=== PATIENT | female | born 1945 | race Caucasian/White ===

== ENCOUNTER 2018-01-13 09:44 | Observation (INO) ==
[2018-01-13] MEDS ORDERED: Heparin 1,000 UNITS/500 mL 500 ML ONE (09:54)
[2018-01-13] MEDS ORDERED: 0.9 % Sodium Chloride 500 ML ONE ×2 (09:54→10:28)
[2018-01-13] MEDS ORDERED: Ampicillin/Sulbactam 1,500 MG in 0.9 % Sodium Chloride Mini Bag 100 ML IVPB ONE (10:03)
[2018-01-13] MEDS ORDERED: *HR* Midazolam HCl 2 MG/2 ML VIAL IVP ONE (10:03)
[2018-01-13] MEDS ORDERED: *HR* FentaNYL (PF) 100 MCG/2 ML VIAL IVP ONE (10:03)
--- NOTE | 2018-01-13 10:05 | Pre-Sedation Evaluation ---
Pre-sedation evaluation - Pre-sedation checklist Date of procedure: 01/13/18 Procedure: double H&P (including ROS) documented in medical record: No Previous reaction to sedatives/anesthetics: No Dietary Status: NPO after Midnight Airway Assessment: Patient can open mouth completely, TMJ function normal, Micrognathia (under-bite, receding chin) absent, Neck with adequate range of motion Possible difficult airway: No ASA Classification *see protocol: CLASS II-Mild systemic disease Plan of Care: Pt appropriate candidate for procedure/moderate/conscious sedation , Risks/benefits of procedure/sedation discussed w/ patient/family, If not NPO; Risk of intake outweiged by necessity to perform procedure Cardiac Registry (Cardio Only) - Functional Capacity - Clincal Frailty Scale Clinical Frailty Scale: Managing Well
--- NOTE | 2018-01-13 10:05 | History & Physical Report ---
Date of Encounter: 01/13/18 Time of Encounter: 10:00 24 Hour HP Update - Instructions Instructions: If the History and Physical is less than 30 days old and was completed prior to A.M. admission and or procedure and has NOT been updated on calendar day of procedure please complete this update prior to performing procedure. - Update Patient reports changes in Medical Condition: No Changes in examination, assessment, or condition: No Changes in Medication: No Preop tests/diagnostics Reviewed: Yes Pre-Op MRSA Screen: Negative Surgery Remains Indicated: Yes Consent for Planned Operative Procedure(s) Verified: Yes - Pre-Operative Checklist Preoperative Checklist Indicated: Yes Prophylactic Antibiotic Ordered: Yes Is VTE Prophylaxis Indicated?: NO
[2018-01-13] MEDS ORDERED: Iopamidol 100 ML in 0.9 % Sodium Chloride 50 ML IVP ONE (11:12)
[2018-01-13] MEDS ORDERED: Isovue-300 50 ML VIAL IVP ONE ×2 (11:15→11:16)
[2018-01-13] MEDS ORDERED: Ondansetron 4 MG/2 ML VIAL ONE (11:35)
[2018-01-13] MEDS ORDERED: Ondansetron 4 MG/2 ML VIAL IVP PRN (11:38)
--- NOTE | 2018-01-13 11:49 | IR Procedure Note ---
Date of procedure: 01/13/18 Consent Obtained: Written consent Timeout: Correct patient and procedure verified, Correct site verified, Time out performed, Skin prep completed Indications: liver hepatoma Procedure Performed: hepatic angiogram, bland embolization Was there an administrative sales assistant present: No Site/Technique: rt femoral access Results/Findings: embolized branch to segment 8 Estimated blood loss (cc): 4 Complications: None; Tolerated procedure well Specimen: none
[2018-01-13] MEDS ORDERED: *HR* Dextrose 50 % in Water (Syg) 50 ML SYRINGE IVP PRN (13:12)
[2018-01-13] MEDS ORDERED: D5% in Water 1,000 ML IVC PRN (13:12)
[2018-01-13] MEDS ORDERED: Dextrose Gel 15 GM/37.5 ML TUBE PO PRN ×2 (13:12)
[2018-01-13] MEDS ORDERED: Naloxone 0.4 MG/ML INJ IVP PRN (13:14)
--- NOTE | 2018-01-13 13:30 | Internal Med History&Physical ---
<GageJustin Caraballo - Last Filed: 01/13/18 14:11> Date of Encounter: 01/13/18 Time of Encounter: 12:30 Internal Medicine - H&P: HPI Chief complaint: N/V Post-Surgery Admitted From: Direct Admit Plans for Post Hospital Care: Home History of present illness: Ms. Laureano is a 73 year old female w/PMH of HLD, HTN, diabetes controlled with oral medications, asthma, arthritis, thyroid disease, migraines, liver disease, history of thrombocytopenia, and depression presents post-surgical intervention (hepatic angiogram and brand embolization) for liver hepatoma. Pt. was experiencing nausea and vomiting post-procedure, most likely d/t sedation. Pt. reports hx of intermittent diarrhea and N/V and SOB following procedure but denies recent illness, fever, chills, changes in vision, headache, unusual bleeding, chest pain, SOB now, abdominal pain, constipation, dizziness, lightheadedness, numbness, tingling, pre-syncope, or syncope. Past Med Surg Social Fam HX - Past Medical History Source: patient, old records reviewed, obtained from family Medical history: arthritis, asthma, cirrhosis, diabetes, hyperlipidemia, hypertension, migraine, thyroid disease Additional medical history: umbilical hernia. asymptomatic cholelithiasis. asthma. type 2 dm Psychiatric history: anxiety, depression - Past Surgical History Surgical History: cataract, cholecystectomy, hysterectomy, orthopedic, other Additional surgical history: flex sig - - Social History Smoking Status: Former smoker Packs per day: 3-4 PPD - Reports quitting in 1997 Smokeless Tobacco Status: No Alcohol use: none (Reports quitting in 1997) Drug use: none Current living situation: Home Activity Level: Independent ambulation Recent Out of Country Travel Within the Last 8 Weeks: No Exposure or Possible Exposure to Illness During Travel: No - Family History Mother Race: Family Member Ethnicity: Non- Living Status: Age at : 69 Cause of : COPD/Emphysema Hx Family Cardiac Disorders: Yes (SC, CAD) Hx Family Respiratory Disorders: Yes (COPD/Empysema) Hx Family Endocrine Disorder: Yes (DM, Thyroid disease) Hx Family Neurologic Disorders: Yes (CVA) Father Race: Family Member Ethnicity: Non- Living Status: Age at : 57 Cause of : SC Hx Family Cardiac Disorders: Yes (massive SC) Sister Race: Family Member Ethnicity: Non- Living Status: Still Living Hx Family Endocrine Disorder: Yes (Pre-diabetes) Internal Medicine - H&P: Meds Albuterol Sulfate [Albuterol Inhaler] 2 puff IH Q4HR PRN 03/02/16 [History] Ergocalciferol (VITAMIN D2) [Vitamin D2] 2,000 unit PO TID 03/02/16 [History] Levothyroxine [Synthroid] 75 mcg PO QAM 03/02/16 [History] Loratadine [Claritin] 10 mg PO DAILY PRN 03/02/16 [History] Metformin HCl [Metformin HCl ER] 1,000 mg PO BID 03/02/16 [History] Sertraline [Zoloft] 100 mg PO DAILY 03/02/16 [History] Simvastatin [Zocor] 20 mg PO HS 03/02/16 [History] Topiramate [Topamax] 50 mg PO DAILY PRN 03/02/16 [History] Zolpidem [Ambien] 10 mg PO HS PRN 08/27/16 [History] Docusate [Colace] 100 mg PO 3XW 11/20/16 [History] Ferrous Sulfate 325 mg PO BIDWM #60 tablet 11/20/16 [Rx] Mv,Ca,Iron,Mn/FA/Chol/Dada/PABA [Body, Hair, Skin & Nails Cap] 1 each PO DAILY [History] Vitamin B Complex/Minerals [Sm Stress Formula+Zinc Tablet] 1 each PO DAILY 11/10 [History] Metoprolol Succinate [Toprol Xl] 25 mg PO BID 01/13/18 [History] Omeprazole [PriLOSEC] 20 mg PO DAILY 01/13/18 [History] 3 Allergy/AdvReac Type Severity Reaction Status Date / Time Sulfa (Sulfonamide Allergy Unknown Hives Verified 12/22/17 10:03 Antibiotics) All Systems PM: A 10-system review of systems was performed and is negative for pertinent findings except as documented above in the HPI. - Constitutional Constitutional: as per HPI, no chills, no fever(s), no night sweats - EENT Eyes: no change in vision, no discharge, no pain, no photophobia Ears: no ear discharge, no ear pain, no tinnitus Nose, mouth and throat: no dysphagia, no nasal discharge, no neck pain, no sore throat - Breasts Breasts: as per HPI - Cardiovascular Cardiovascular ROS IM: no chest pain, no diaphoresis, no dyspnea, no lightheadedness, no palpitations, no syncope - Respiratory Respiratory: no cough, no dyspnea, no wheezing, no excessive phlegm production - Gastrointestinal Gastrointestinal: as per HPI, diarrhea, no abdominal pain, no hematemesis, no hematochezia, no melena, no nausea, no vomiting - Genitourinary Genitourinary: no change in urinary stream, no dysuria, no flank pain, no hematuria Menstruation: as per HPI, post hysterectomy - Musculoskeletal Musculoskeletal ROS IM: no numbness, no tingling - Integumentary Integumentary IM: no rash, no unusual bruising - Neurological Neurological ROS: no confusion, no convulsions, no focal weakness, no numbness, no tingling, no tremor(s) - Psychiatric Psychiatric: as per HPI - Endocrine Endocrine IM: as per HPI - Hematologic/Lymphatic Hematologic/Lymphatic: no easy bruising - Allergic/Immunologic Allergic/Immunologic: as per HPI - Constitutional Vitals: Temp Pulse Resp BP Pulse Ox 97.8 F 62 16 135/67 94 01/13/18 09:52 01/13/18 13:00 01/13/18 13:00 01/13/18 13:00 01/13/18 13:00 General appearance: Present: cooperative, A&O X 3, pleasant, no acute distress, obese, answers questions appropriately Exam: Patient examined at bedside post-procedure. Pt. reports weakness but states she is no longer nauseous even after eating some bites of keanu crackers. Pt. denies other complaints at this time. Instructed that she is falls precautions and up with assist d/t weakness and post-surgical status. Daughter present during assessment and plan of care discussed w/pt. and daughter who expressed understanding and agreement to POC. VS: 97.8F temp, HR 64, RR 16, BP 154/87, SpO2 92% on RA. - Head Head exam: Present: atraumatic, normocephalic - Eye Eye exam: Present: PERRL, conjuntiva pink, sclera anicteric Pupils: Present: PERRL - ENT ENT exam: Present: normal exam - Neck Neck exam general surgery: Present: normal inspection - Respiratory Respiratory exam: Present: CTAB. Absent: accessory muscle use, rales, rhonchi, wheezes - Cardiovascular Cardiovascular exam: Present: RRR, +S1, +S2. Absent: diastolic murmur, gallop, rubs, systolic murmur - GI/Abdominal GI/Abdominal exam: Present: normal bowel sounds, soft, no peritoneal signs. Absent: distended, tenderness - Rectal Rectal exam: Present: deferred - Additional comments: exam deferred. - Extremities Exam Extremities exam: Present: warm, radial pulses palpable and symmetrical. Absent : calf tenderness, cyanotic, pedal edema - Neurological Exam Neurological exam: Present: alert, CN II-XII intact, oriented X3, no focal deficits. Absent: pronater drift, facial droop, speech deficit - Psychiatric Psychiatric exam: Present: normal affect, normal mood - Skin Skin exam: Present: dry, intact Internal Med - H&P Results - Labs CBC & Chem 7: 01/13/18 13:17 - EKG Data EKG shows normal: sinus rhythm - EKG Data Prior EKG available for review: yes EKG comments: 01/13/18 13:44 EKG dated 01/13/18 11:19 shows sinus rhythm with occasional ectopic premature complexes and prolonged QT interval. EKG dated 01/13/18 11:20 shows sinus rhythm with occasional ventricular premature complexes. - Assessment and plan (1) Nausea and vomiting Current Visit: Yes Status: Acute Assessment and plan: Acute N/V post-hepatic angiogram and bland embolization, most likely d/t sedation. Zofran ordered by IR x1 dose. 12.5 mg IVP Phenergan Q6HR PRN for N/V. Pt. reports eating a few bites of keanu cracker post-procedure w/o N/V. Clear liquid diet ordered with Advance as Tolerated order. IR to see pt. in a.m. Monitor I&O. Pt. discussed w/Dr. Kelley who agrees w/plan of care. Pt. is moderate risk for further morbidity and complications from post-procedure bleeding, N/V d /t sedation, HTN complicating post-procedure status and bleeding risk, hx, and risk factors. Observation. Qualifiers: Vomiting type: cyclical vomiting Vomiting Intractability: non-intractable Qualified Code(s): G43.A0 - Cyclical vomiting, not intractable (2) Weakness Current Visit: Yes Status: Acute Assessment and plan: Acute weakness post-hepatic angiogram and bland embolization. Pt. states that she normally ambulates w/o assistive devices. Reports some weakness after procedure. Falls/safety precautions and up with assist only. (3) Diffuse nodular cirrhosis of liver Current Visit: Yes Status: Chronic Assessment and plan: Hx of liver disease and diffuse nodular cirrhosis of the liver. CT of the abdomen on 01/04/18 shows cirrhosis with increasing size of the hypervascular liver lesion within the dome previously evaluated by MRI. There are multiple additional hypervascular liver lesions. Cholecystectomy. Stable left adrenal nodule 1.5 cm which likely represents an adrenal adenoma. Fat-containing periumbilical hernia. (4) Thrombocytopenia Current Visit: Yes Status: Chronic Assessment and plan: Hx of chronic thromcytopenia. Pt. received platelet transfusion prior to hepatic angiogram and bland embolization. Will avoid SQ heparin d/t low platelets and post-surgical status. Monitor pt. and f/u labs. Pt. to f/u w/Dr. Espinoza as OP. (5) HLD (hyperlipidemia) Current Visit: Yes Status: Chronic Assessment and plan: Hx of chronic HLD. Lipid panel in a.m. labs. Continue pts. Zocor. Qualifiers: Hyperlipidemia type: pure hypercholesterolemia Qualified Code(s): E78.00 - Pure hypercholesterolemia, unspecified; E78.0 - Pure hypercholesterolemia (6) HTN (hypertension) Current Visit: Yes Status: Chronic Assessment and plan: Hx of chronic HTN. Monitor pt. and VS. Continue pts. Metoprolol. Add IVP hydralazine 10 mg Q6HR w/parameters if warranted. Qualifiers: Hypertension type: essential hypertension Qualified Code(s): I10 - Essential (primary) hypertension (7) Diabetes 1.5, managed as type 2 Current Visit: Yes Status: Chronic Assessment and plan: Hx of T2DM controlled w/Metformin. Will hold Metformin and administer low-dose correction sliding scale insulin with hypoglycemic protocol. BG checks before meals at bedtime. A1c in a.m. labs. (8) Thyroid disease Current Visit: Yes Status: Chronic Assessment and plan: Hx of chronic thyroid disease. TSH ordered. Continue pts. Synthroid. (9) Anemia Current Visit: Yes Status: Chronic Assessment and plan: Hx of chronic intermittent anemia. Hgb 12.9 on 01/06/18. Hgb today. Monitor pt. and f/u labs. Qualifiers: Anemia type: unspecified type Qualified Code(s): D64.9 - Anemia, unspecified (10) DVT prophylaxis Current Visit: Yes Status: Acute Assessment and plan: Anti-embolic stockings d/t post-surgical status today. Monitor pt. for signs of bleeding. (11) Anxiety and depression Current Visit: Yes Status: Chronic Assessment and plan: Hx of chronic anxiety and depression. Continue pts. Zoloft. - Time Spent With Patient Total time spent is greater than 50% in coordination of care (as documented) at patient's floor/unit and/or counseling patient: Greater than 35 minutes <Souleymane Kelley - Last Filed: 01/13/18 17:23> Date of Encounter: 01/13/18 Internal Medicine - H&P: HPI History of present illness: Ms. Laureano is a 73 year old female All Systems PM: A 10-system review of systems was performed and is negative for pertinent findings except as documented above in the HPI. - Constitutional Vitals: Temp Pulse Resp BP Pulse Ox 97.8 F 58 16 133/78 94 01/13/18 15:57 01/13/18 16:00 01/13/18 16:00 01/13/18 16:00 01/13/18 16:00 Internal Med - H&P Results - Labs CBC & Chem 7: 01/13/18 13:17 01/13/18 13:17 Labs: Short CBC 01/13/18 Range/Units 13:17 WBC 3.6 L (4.3-11.1) K/mcL Hgb 12.3 (11.5-15.4) g/dL Hct 38.5 (35.3-44.9) % Plt Count 65 L (140-400) K/mcL Neutrophils # 2.4 (1.6-8.9) K/mcL BMP 01/13/18 13:17 Sodium 142 Potassium 3.9 Chloride 109 H Carbon Dioxide 27 BUN 9 Creatinine 0.72 Glucose 117 H Calcium 8.8 Liver Function 01/13/18 01/13/18 Range/Units 13:17 13:17 Total Bilirubin 0.7 0.7 (0.3-1.0) mg/dL Direct Bilirubin 0.2 (0.0-0.2) mg/dL AST 31 31 (13-39) Units/L ALT 24 24 (7-52) Units/L Alkaline Phosphatase 72 79 (34-104) Units/L Albumin 3.7 3.7 (3.5-5.7) g/dL - Impressions ITS Impressions Abdomen Arteriogram 01/13/18 00:00 IMPRESSION: Successful hepatic arteriography and embolization of the segment 8 hepatic artery. D/ / 01/13/2018 13:55:59 Zuleika Mahajan MD / jeremy Interpreting Provider: Zuleika Mahajan MD Arteriogram 01/13/18 00:00 IMPRESSION: Successful hepatic arteriography and embolization of the segment 8 hepatic artery. D/ / 01/13/2018 13:55:59 Zuleika Mahajan MD / jeremy Interpreting Provider: Zuleika Mahajan MD Embolization 01/13/18 00:00 IMPRESSION: Successful hepatic arteriography and embolization of the segment 8 hepatic artery. D/ / 01/13/2018 13:55:59 Zuleika Mahajan MD / jeremy Interpreting Provider: Zuleika Mahajan MD - Assessment and plan (1) Anemia Current Visit: Yes Status: Chronic Qualifiers: Anemia type: unspecified type Qualified Code(s): D64.9 - Anemia, unspecified (2) Diffuse nodular cirrhosis of liver Current Visit: Yes Status: Chronic (3) Thrombocytopenia Current Visit: Yes Status: Chronic (4) Nausea and vomiting Current Visit: Yes Status: Acute Qualifiers: Vomiting type: cyclical vomiting Vomiting Intractability: non-intractable Qualified Code(s): G43.A0 - Cyclical vomiting, not intractable (5) DVT prophylaxis Current Visit: Yes Status: Acute (6) HLD (hyperlipidemia) Current Visit: Yes Status: Chronic Qualifiers: Hyperlipidemia type: pure hypercholesterolemia Qualified Code(s): E78.00 - Pure hypercholesterolemia, unspecified; E78.0 - Pure hypercholesterolemia (7) HTN (hypertension) Current Visit: Yes Status: Chronic Qualifiers: Hypertension type: essential hypertension Qualified Code(s): I10 - Essential (primary) hypertension (8) Diabetes 1.5, managed as type 2 Current Visit: Yes Status: Chronic (9) Thyroid disease Current Visit: Yes Status: Chronic (10) Weakness Current Visit: Yes Status: Acute (11) Anxiety and depression Current Visit: Yes Status: Chronic - Time Spent With Patient Total time spent is greater than 50% in coordination of care (as documented) at patient's floor/unit and/or counseling patient: - Attending Attestation I have seen and examined the patient with COMMUNITY LIFE DIRECTOR Justin Almonte and agree with his/her assessment and plan. 73-year-old female with history of hypertension, HLD, diabetes, hypothyroidism, and hepatoma status post embolization today is admitted from IR suite for N/V that developed after the procedure. Afebrile, hemodynamically stable, benign abdo exam without significant tenderness, rigidity, rebound, or guarding. Suspect her symptoms to be related to sedation rather than intra-abdominal cause. Supportive management and will monitor overnight. Souleymane Kelley MD
[2018-01-13 13:56] LABS: Basophils % 0.8 %; Eosinophils # 0.1 K/mcL (0.0-0.6); Eosinophils % 1.9 %; Hematocrit 38.5 % (35.3-44.9); Hemoglobin 12.3 g/dL (11.5-15.4); Immature Granulocytes % 0.3 % (0-4); Immature Platelets 7.5 % (1.1-6.1); Lymphocytes # 0.9 K/mcL (0.6-4.6); Lymphocytes % 25.1 %; Mean Corpuscular HGB Conc 31.9 g/dL (31.6-35.5); Mean Corpuscular Hemoglobin 28.3 pg (28.0-33.3); Mean Corpuscular Volume 88.7 fL (83.0-100.0); Monocytes # 0.2 K/mcL (0.0-1.3); Monocytes % 6.1 %; Neutrophils # 2.4 K/mcL (1.6-8.9); Red Blood Count 4.34 M/mcL (3.82-4.97); Red Cell Distribution Width 13.7 % (11.5-14.5); Segmented Neutrophils % 65.8 %
[2018-01-13 13:57] LABS: Platelet Count 65 K/mcL (140-400)
[2018-01-13 14:27] LABS: Thyroid Stimulating Hormone 1.942 mcIU/mL (0.340-5.600)
[2018-01-13 14:34] LABS: BUN/Creatinine Ratio 13 (6-26); Blood Urea Nitrogen 9 mg/dL (8-23); Carbon Dioxide 27 mEq/L (23-29); Chloride 109 mEq/L (98-107); Glucose 117 mg/dL (70-105); Potassium 3.9 mEq/L (3.5-5.1); Sodium 142 mEq/L (136-145); eGFR For Non-African Americans > 60 (> 60)
[2018-01-13 14:35] LABS: Alanine Aminotransferase 24 Units/L (7-52); Albumin 3.7 g/dL (3.5-5.7); Albumin/Globulin Ratio 1.5 (1.1-2.2); Alkaline Phosphatase 72 Units/L (34-104); Aspartate Amino Transferase 31 Units/L (13-39); Bilirubin,Total 0.7 mg/dL (0.3-1.0); Calcium 8.8 mg/dL (8.6-10.3); Globulin 2.4 g/dL (2.4-3.5); Osmolality,Calculated 294 (280-300); Total Protein 6.1 g/dL (6.4-8.9)
[2018-01-13] MEDS ORDERED: Loratadine 10 MG TABLET PO PRN (15:15)
[2018-01-13] MEDS ORDERED: Topiramate 25 MG TABLET PO PRN (15:15)
[2018-01-13 15:31] LABS: Albumin 3.7 g/dL (3.5-5.7); Albumin/Globulin Ratio 1.5 (1.1-2.2); Bilirubin,Direct 0.2 mg/dL (0.0-0.2); Bilirubin,Indirect 0.5 mg/dL (0.0-1.2); Bilirubin,Total 0.7 mg/dL (0.3-1.0); Globulin 2.4 g/dL (2.4-3.5); Total Protein 6.1 g/dL (6.4-8.9)
[2018-01-13] MEDS: Acetaminophen 325 MG TABLET PO PRN ×2 (15:59→23:33)
[2018-01-13] MEDS: Insulin LISPRO 300 UNITS/3 ML VIAL SQ SCH (16:56)
[2018-01-13] MEDS: *HR* Promethazine 25 MG/ML VIAL IVP PRN ×2 (16:56→23:33)
[2018-01-13 17:29] LABS: Hepatitis B Surface Antigen Nonreactive (Nonreactive)
[2018-01-13] MEDS ORDERED: Insulin LISPRO 300 UNITS/3 ML VIAL SQ SCH (21:00)
[2018-01-13] MEDS: Metoprolol XL (24 HR) Succ 25 MG TAB.ER.24H PO SCH (21:44)
[2018-01-14 01:02] LABS: Hepatitis A Antibody IgM Nonreactive (Nonreactive); Hepatitis B Core IgM Nonreactive (Nonreactive); Hepatitis C Virus Antibody Nonreactive (Nonreactive)
[2018-01-14 05:16] LABS: Basophils % 0.2 %; Eosinophils % 0.1 %; Immature Granulocytes % 0.3 % (0-4)
[2018-01-14 05:18] LABS: Hematocrit 39.4 % (35.3-44.9); Hemoglobin 12.8 g/dL (11.5-15.4); Immature Platelets 8.7 % (1.1-6.1); Lymphocytes # 1.4 K/mcL (0.6-4.6); Lymphocytes % 16.1 %; Mean Corpuscular HGB Conc 32.5 g/dL (31.6-35.5); Mean Corpuscular Hemoglobin 28.4 pg (28.0-33.3); Mean Corpuscular Volume 87.4 fL (83.0-100.0); Mean Platelet Volume 10.9 fL (9.4-12.4); Monocytes # 0.6 K/mcL (0.0-1.3); Monocytes % 7.2 %; Neutrophils # 6.6 K/mcL (1.6-8.9); Red Blood Count 4.51 M/mcL (3.82-4.97); Red Cell Distribution Width 13.8 % (11.5-14.5); Segmented Neutrophils % 76.1 %
[2018-01-14 05:20] LABS: Platelet Count 63 K/mcL (140-400)
[2018-01-14 05:39] LABS: Alanine Aminotransferase 25 Units/L (7-52); Albumin 3.8 g/dL (3.5-5.7); Albumin/Globulin Ratio 1.5 (1.1-2.2); Alkaline Phosphatase 80 Units/L (34-104); Aspartate Amino Transferase 44 Units/L (13-39); BUN/Creatinine Ratio 12 (6-26); Bilirubin,Total 0.8 mg/dL (0.3-1.0); Blood Urea Nitrogen 9 mg/dL (8-23); Calcium 9.1 mg/dL (8.6-10.3); Carbon Dioxide 24 mEq/L (23-29); Chloride 107 mEq/L (98-107); Chol/HDL Ratio 4.7 (0-4.9); Cholesterol 142 mg/dL (< 200); Globulin 2.5 g/dL (2.4-3.5); Glucose 144 mg/dL (70-105); HDL Cholesterol 30 mg/dL (40-59); LDL Cholesterol,Calculated 91 mg/dL (0-99); Osmolality,Calculated 287 (280-300); Sodium 138 mEq/L (136-145); Total Protein 6.3 g/dL (6.4-8.9); Triglycerides 107 mg/dL (< 150); eGFR For Non-African Americans > 60 (> 60)
[2018-01-14] MEDS: Insulin LISPRO 300 UNITS/3 ML VIAL SQ SCH ×2 (08:31→11:27)
[2018-01-14] MEDS: Acetaminophen 325 MG TABLET PO PRN (08:32)
[2018-01-14] MEDS: Metoprolol XL (24 HR) Succ 25 MG TAB.ER.24H PO SCH (08:32)
[2018-01-14] MEDS ORDERED: Cholecalciferol (D-3) 1,000 UNIT TABLET PO SCH (09:00)
[2018-01-14 09:13] LABS: Estimated Average Glucose 128 mg/dl; Hemoglobin A1C 6.1 %
[2018-01-14 11:12] VITALS: BP 137/78
--- NOTE | 2018-01-14 11:13 | Internal Med Progress Note ---
Hospitalist Progress Note - Encounter Date of Encounter: 01/14/18 Time of Encounter: 11:13 - Subjective Interval History: patient seen and examine this morning. No acute overnight events. - Exam Vitals: Temp Pulse Resp BP Pulse Ox 98.2 F 56 16 137/78 92 01/14/18 11:09 01/14/18 11:09 01/14/18 11:09 01/14/18 11:09 01/14/18 11:09 - Assessment and Plan (1) Anemia Current Visit: Yes Status: Chronic (2) Diffuse nodular cirrhosis of liver Current Visit: Yes Status: Chronic (3) Thrombocytopenia Current Visit: Yes Status: Chronic (4) Nausea and vomiting Current Visit: Yes Status: Acute (5) DVT prophylaxis Current Visit: Yes Status: Acute (6) HLD (hyperlipidemia) Current Visit: Yes Status: Chronic (7) HTN (hypertension) Current Visit: Yes Status: Chronic (8) Diabetes 1.5, managed as type 2 Current Visit: Yes Status: Chronic (9) Thyroid disease Current Visit: Yes Status: Chronic (10) Weakness Current Visit: Yes Status: Acute (11) Anxiety and depression Current Visit: Yes Status: Chronic - Time Spent with Patient Total time spent is greater than 50% in coordination of care (as documented) at patient's floor/unit and/or counseling patient: Internal Medicine: Result - Labs CBC & Chem 7: 01/14/18 04:37 01/14/18 04:37 Labs: Short CBC 01/13/18 01/14/18 Range/Units 13:17 04:37 WBC 3.6 L 8.7 D (4.3-11.1) K/mcL Hgb 12.3 12.8 (11.5-15.4) g/dL Hct 38.5 39.4 (35.3-44.9) % Plt Count 65 L 63 L (140-400) K/mcL Neutrophils # 2.4 6.6 (1.6-8.9) K/mcL BMP 01/13/18 01/14/18 13:17 04:37 Sodium 142 138 Potassium 3.9 4.0 Chloride 109 H 107 Carbon Dioxide 27 24 BUN 9 9 Creatinine 0.72 0.73 Glucose 117 H 144 H Calcium 8.8 9.1 Liver Function 10/11/18 10/11/18 10/12/18 Range/Units 13:17 13:17 04:37 Total Bilirubin 0.7 0.7 0.8 (0.3-1.0) mg/dL Direct Bilirubin 0.2 (0.0-0.2) mg/dL AST 31 31 44 H (13-39) Units/L ALT 24 24 25 (7-52) Units/L Alkaline Phosphatase 72 79 80 (34-104) Units/L Albumin 3.7 3.7 3.8 (3.5-5.7) g/dL - Impressions Impressions Abdomen Arteriogram 01/13/18 00:00 IMPRESSION: Successful hepatic arteriography and embolization of the segment 8 hepatic artery. D/ / 01/13/2018 13:55:59 Zuleika Mahajan MD / jeremy Interpreting Provider: Zuleika Mahajan MD Arteriogram 01/13/18 00:00 IMPRESSION: Successful hepatic arteriography and embolization of the segment 8 hepatic artery. D/ / 01/13/2018 13:55:59 Zuleika Mahajan MD / jeremy Interpreting Provider: Zuleika Mahajan MD Embolization 01/13/18 00:00 IMPRESSION: Successful hepatic arteriography and embolization of the segment 8 hepatic artery. D/ / 01/13/2018 13:55:59 Zuleika Mahajan MD / jeremy Interpreting Provider: Zuleika Mahajan MD Consult Discharge Plan - Plan Referrals: Justus Mccoy MD [Primary Care Provider] - (1) Anemia Qualifiers: Anemia type: unspecified type Qualified Code(s): D64.9 - Anemia, unspecified (4) Nausea and vomiting Qualifiers: Vomiting type: cyclical vomiting Vomiting Intractability: non-intractable Qualified Code(s): G43.A0 - Cyclical vomiting, not intractable (6) HLD (hyperlipidemia) Qualifiers: Hyperlipidemia type: pure hypercholesterolemia Qualified Code(s): E78.00 - Pure hypercholesterolemia, unspecified; E78.0 - Pure hypercholesterolemia (7) HTN (hypertension) Qualifiers: Hypertension type: essential hypertension Qualified Code(s): I10 - Essential (primary) hypertension
--- NOTE | 2018-01-14 13:42 | IR Progress Note ---
Patient reports: still having pain, pain is less Vital Signs: Vital Signs/O2 Sat, Most Current Temp Pulse Resp BP Pulse Ox 98.2 F 56 16 137/78 92 01/14/18 11:09 01/14/18 11:09 01/14/18 11:09 01/14/18 11:09 01/14/18 11:09 Recent Labs: Lab Results 01/14/18 01/14/18 01/13/18 04:37 04:37 13:17 WBC 8.7 D RBC 4.51 Hgb 12.8 Hct 39.4 MCV 87.4 MCH 28.4 MCHC 32.5 RDW 13.8 Plt Count 63 L MPV 10.9 Neutrophils # 6.6 Lymphocytes # 1.4 Monocytes # 0.6 Eosinophils # 0.0 Basophils # 0.0 Sodium 138 142 Potassium 4.0 3.9 Chloride 107 109 H Carbon Dioxide 24 27 BUN 9 9 Creatinine 0.73 0.72 Est GFR ( Amer) > 60 > 60 Est GFR (Non-Af Amer) > 60 > 60 BUN/Creatinine Ratio 12 13 Glucose 144 H 117 H Calcium 9.1 8.8 Magnesium 2.0 01/13/18 13:17 WBC 3.6 L RBC 4.34 Hgb 12.3 Hct 38.5 MCV 88.7 MCH 28.3 MCHC 31.9 RDW 13.7 Plt Count 65 L MPV 11.0 Neutrophils # 2.4 Lymphocytes # 0.9 Monocytes # 0.2 Eosinophils # 0.1 Basophils # 0.0 Sodium Potassium Chloride Carbon Dioxide BUN Creatinine Est GFR ( Amer) Est GFR (Non-Af Amer) BUN/Creatinine Ratio Glucose Calcium Magnesium Assessment and Plan S/P bland embolization hepatic artery for HCC. Improving abdominal pain. OK to D /C home.
--- NOTE | 2018-01-14 14:52 | Discharge Summary ---
Date of Encounter: 01/14/18 Time of Encounter: 14:06 - Discharge Diagnosis (1) Anemia Priority: Secondary Status: Chronic Qualifiers: Anemia type: unspecified type Qualified Code(s): D64.9 - Anemia, unspecified (2) Diffuse nodular cirrhosis of liver Priority: Secondary Status: Chronic (3) Thrombocytopenia Priority: Secondary Status: Chronic (4) Nausea and vomiting Priority: Primary Status: Acute Qualifiers: Vomiting type: cyclical vomiting Vomiting Intractability: non-intractable Qualified Code(s): G43.A0 - Cyclical vomiting, not intractable (5) DVT prophylaxis Priority: Secondary Status: Acute (6) HLD (hyperlipidemia) Priority: Secondary Status: Chronic Qualifiers: Hyperlipidemia type: pure hypercholesterolemia Qualified Code(s): E78.00 - Pure hypercholesterolemia, unspecified; E78.0 - Pure hypercholesterolemia (7) HTN (hypertension) Priority: Secondary Status: Chronic Qualifiers: Hypertension type: essential hypertension Qualified Code(s): I10 - Essential (primary) hypertension (8) Diabetes 1.5, managed as type 2 Priority: Secondary Status: Chronic (9) Thyroid disease Priority: Secondary Status: Chronic (10) Weakness Priority: Secondary Status: Acute (11) Anxiety and depression Priority: Secondary Status: Chronic Hospital course: Ms. Laureano is a 73 year old female past medical history of hypertension, HLD, diabetes, asthma, depression, hypothyroidism, arthritis was admitted after hepatic angiogram and bland embolization for hepatoma with complaints of nausea and vomiting. She was admitted her under observation along with IR. Post opt she improved with antiemetics. Is tolerating diet well. N/V likely secondary to sedative and due to pain which was more than expected for her. Stable from IR point of view to discharge. To follow-up with PCP outpatient. Discharge discussed with: patient, family, nurse, beauty consultant - Time Spent with Patient Total time spent providing and/or coordinating discharge services: Greater than 30 minutes (40) - Discharge Medications Prescriptions: Promethazine [Phenergan] 25 mg PO Q12H PRN 2 Days #4 tablet PRN Reason: Nausea And Vomiting Home Medications: Albuterol Sulfate [Albuterol Inhaler] 2 puff IH Q4HR PRN 03/02/16 [History] Ergocalciferol (VITAMIN D2) [Vitamin D2] 2,000 unit PO TID 03/02/16 [History] Levothyroxine [Synthroid] 75 mcg PO QAM 03/02/16 [History] Loratadine [Claritin] 10 mg PO DAILY PRN 03/02/16 [History] Metformin HCl [Metformin HCl ER] 1,000 mg PO BID 03/02/16 [History] Sertraline [Zoloft] 100 mg PO DAILY 03/02/16 [History] Simvastatin [Zocor] 20 mg PO HS 03/02/16 [History] Topiramate [Topamax] 50 mg PO DAILY PRN 03/02/16 [History] Zolpidem [Ambien] 10 mg PO HS PRN 08/27/16 [History] Docusate [Colace] 100 mg PO 3XW 11/20/16 [History] Ferrous Sulfate 325 mg PO BIDWM #60 tablet 11/20/16 [Rx] Mv,Ca,Iron,Mn/FA/Chol/Dada/PABA [Body, Hair, Skin and Nails Cap] 1 each PO DAILY 11/10/17 [History] Vitamin B Complex/Minerals [Sm Stress Formula+Zinc Tablet] 1 each PO DAILY 11/10 [History] Metoprolol Succinate [Toprol Xl] 25 mg PO BID 01/13/18 [History] Omeprazole [PriLOSEC] 20 mg PO DAILY 01/13/18 [History] Promethazine [Phenergan] 25 mg PO Q12H PRN 2 Days #4 tablet 01/14/18 [Rx] Allergies/Adverse Reactions: 3 Allergy/AdvReac Type Severity Reaction Status Date / Time Sulfa (Sulfonamide Allergy Unknown Hives Verified 12/22/17 10:03 Antibiotics) Primary care physician: Justus Mccoy MD Consults: 01/13/18 13:17 Consult to Track Layer [CONS] Routine Reason for SW Consult: Please assess patient for possible home needs for post -discharge planning. Discharging clinician: Karly Weems - Constitutional Vitals: Temp Pulse Resp BP Pulse Ox 98.2 F 56 16 137/78 92 01/14/18 11:09 01/14/18 11:09 01/14/18 11:09 01/14/18 11:09 01/14/18 11:09 General appearance: Present: cooperative, A&O X 3, pleasant, no acute distress, obese, answers questions appropriately Exam: General: In no acute distress. Conversant. Obese. Respiratory exam: CTAB. no accessory muscle use, rales, rhonchi, wheezes Cardiovascular exam: RRR, +S1, +S2. no murmur, gallop, rubs. GI/Abdominal exam: Non-tender, Non-distended, normal bowel sounds, soft, no peritoneal signs. Extremities exam: full ROM, no pedal edema, warm, pulses palpable in b/l lower extremities. no calf tenderness. Rt groin access without bleeding, hematoma. Neurological exam: CN II-XII intact, AO X3, no focal deficits. no pronater drift , facial droop, speech deficit Skin exam: No skin rash, ulcer, purpura or ecchymosis. - Patient Status Disposition: Home, Self-Care Condition: Fair - Discharge Instructions Follow Up With: Justus Mccoy MD [Primary Care Provider] - - Diet and Activity Activity: resume usual activities as tolerated
--- NOTE | 2018-01-15 10:43 | Electrocardiograph Report ---
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
== END 2018-01-14 16:13 | disposition home or self-care (01) ==
LOC: SUATTDRO → LAB 09:44 → 3BNU 09:44
PROVIDERS: ADMIT Nurse Practitioner Family; ATTEND Internal Medicine